=== PATIENT | female | born 1985 | race Caucasian/White ===

== ENCOUNTER 2018-04-29 15:31 | Emergency (ER) | payer SELFPAY ==
--- NOTE | 2018-04-29 17:22 | ER Document Report ---
ED Medical Screen (RME) - General Chief Complaint: Abscess Stated Complaint: POSSIBLE ABSCESS Time Seen by Provider: 04/29/18 17:14 Primary Care Provider: ILA LUCIANO MD [Primary Care Provider] - Follow up as needed Mode of Arrival: Ambulatory Information source: Patient Notes: 32-year-old female presents emergency department with complaints of a left arm abscess that started 3 days ago and has been increasing in size. Patient states that she does have a history of previous abscesses. No history of MRSA. Patient states her last abscess was 9 months ago. She denies any fever or chills. Her tetanus is up-to-date. I have greeted and performed a rapid initial assessment of this patient. A comprehensive ED assessment and evaluation of the patient, analysis of test results and completion of the medical decision making process will be conducted by additional ED providers. PHYSICAL EXAMINATION: GENERAL: Well-appearing, well-nourished and in no acute distress. HEAD: Atraumatic, normocephalic. EYES: Pupils equal round extraocular movements intact, conjunctiva are normal. ENT: Nares patent NECK: Normal range of motion LUNGS: No respiratory distress Musculoskeletal: Normal range of motion NEUROLOGICAL: Normal speech, normal gait. SKIN: Warm, Dry, normal turgor, no rashes or lesions noted, Ping pong ball size area of erythema, warmth, induration/fluctuance to the Left arm. . TRAVEL OUTSIDE OF THE [place] IN LAST 30 DAYS: No - Related Data Allergies/Adverse Reactions: Sulfa (Sulfonamide Antibiotics) Allergy (Verified 04/29/18 15:34) Past Medical History - Social History Chew tobacco use (# tins/day): No Frequency of alcohol use: None Drug Abuse: None Renal/ Medical History: Denies: Hx Peritoneal Dialysis Past Surgical History: Reports: Hx Section - 1 Physical Exam - Vital signs Vitals: Temp Pulse Resp BP Pulse Ox 99.4 F 85 13 106/70 95 04/29/18 15:42 04/29/18 15:42 04/29/18 15:42 04/29/18 15:42 04/29/18 15:42 Course - Vital Signs Vital signs: Temp Pulse Resp BP Pulse Ox 99.4 F 85 13 106/70 95 04/29/18 15:42 04/29/18 15:42 04/29/18 15:42 04/29/18 15:42 04/29/18 15:42 Doctor's Discharge - Discharge Referrals: ILA LUCIANO MD [Primary Care Provider] - Follow up as needed
[2018-04-29] MEDS ORDERED: HYDROCODONE/ACETAMINOPHEN 5-325 MG TABLET PO ONE (17:23)
[2018-04-29] MEDS ORDERED: LIDOCAINE 1% INJ-PF (10 MG/ML) 30 ML SDV INJ ONE (17:28)
--- NOTE | 2018-04-29 18:05 | ER Document Report ---
ED General - General Chief Complaint: Abscess Stated Complaint: POSSIBLE ABSCESS Time Seen by Provider: 04/29/18 17:14 Primary Care Provider: ILA LUCIANO MD [Primary Care Provider] - Follow up as needed Mode of Arrival: Ambulatory Information source: Patient TRAVEL OUTSIDE OF THE [place] IN LAST 30 DAYS: No - HPI Patient complains to provider of: Left upper arm abscess Onset: Other - 3 days Onset/Duration: Gradual Quality of pain: Sharp Severity: Moderate Context: Previous abscess history Associated symptoms: denies: Chills, Fever Exacerbated by: Denies Relieved by: Denies Similar symptoms previously: Yes Recently seen / treated by doctor: No Notes: 32-year-old female presents with a large abscess in the left upper arm. She has a history of abscesses in the past. Does not have any diabetes or immune compromise. Denies fevers or chills. Denies skin popping and IV drug abuse. Patient now also asking for something to help with her left upper jaw dental pain. - Related Data Allergies/Adverse Reactions: Sulfa (Sulfonamide Antibiotics) Allergy (Verified 04/29/18 15:34) Past Medical History - General Information source: Patient - Social History Smoking Status: Never Smoker Chew tobacco use (# tins/day): No Frequency of alcohol use: None Drug Abuse: None Family History: Reviewed & Not Pertinent Patient has suicidal ideation: No Patient has homicidal ideation: No Renal/ Medical History: Denies: Hx Peritoneal Dialysis Past Surgical History: Reports: Hx Section - 1 Review of Systems - Review of Systems Notes: Constitutional: No fevers. No chills. EENT: No eye redness. No eye pain. No ear pain. No sore throat. Cardiovascular: No chest pain. No palpitations. Respiratory: No cough. No shortness of breath. No respiratory distress. Gastrointestinal: No abdominal pain. No nausea, vomiting, or diarrhea. Genitourinary: Atraumatic. No lesions. No pain. No discharge. Musculoskeletal: Atraumatic. No swelling. No deformities. Skin: Left upper extremity abscess Lymphatic: No swollen lymph nodes. Neurologic: No headache. No syncope. Psychiatric: No suicidal or homicidal ideation. Physical Exam - Vital signs Vitals: Temp Pulse Resp BP Pulse Ox 99.4 F 85 13 106/70 95 04/29/18 15:42 04/29/18 15:42 04/29/18 15:42 04/29/18 15:42 04/29/18 15:42 - Notes Notes: General: Well-developed, well-nourished. In no acute distress. Non-toxic appearing. Cardiac: Well-perfused. Regular rate and rhythm. No murmurs, rubs, or gallops. Pulmonary: No respiratory distress. No cyanosis. Bilateral lung fiels are clear to auscultation. Abdominal: Non-distended. Non-rigid. Bowels sounds are present in all four quadrants. No guarding or rebound. HEENT: Head is atraumatic. Conjunctivae not reddened. No tearing. PERRL. EOMI. Orbits atraumatic. No periorbital swelling or erythema. Oropharynx is without erythema, swelling, or exudates. General dentition in very poor repair. Left upper jaw with multiple consecutive broken decayed teeth tender. No visible abscess Neck: Supple. No adenopathy. No meningismus. Dermatologic: Large 3 cm diameter fluctuant abscess with cellulitis to the left upper arm. Chest: Atraumatic. No chest wall tenderness to palpation. Musculoskeletal: Moves all extremities well. No range of motion deficits. no muscular or joint tenderness. No paraspinal muscle tenderness. no midline spinal tenderness or step-off. Genitourinary: Examination deferred Neurologic: No gross neurologic deficits. Psychiatric: Normal mood. Course - Re-evaluation Re-evalutation: 04/29/18 18:04 Patient requests oral pain medication before we do the procedure. - Vital Signs Vital signs: Temp Pulse Resp BP Pulse Ox 99.4 F 85 13 106/70 95 04/29/18 15:42 04/29/18 15:42 04/29/18 15:42 04/29/18 15:42 04/29/18 15:42 Procedures - Incision and Drainage Left Upper Arm Type: Simple Anesthetic type: 1% Lidocaine mL's of anesthetic: 10 Blade size: 11 I&D procedure: Betadine prep applied, Shurclens applied, Iodoform packing placed Incision Method: Incision made with needle Amount/type of drainage: 10 cc Notes: 04/29/18 18:49 Patient tolerated procedure well Discharge - Discharge Clinical Impression: Dental abscess, Abscess of left arm Condition: Good Disposition: HOME, SELF-CARE Instructions: Abscess ([facility]), Dental Infection or Abscess ([facility]) Prescriptions: Tramadol HCl [Ultram] 50 mg PO Q6HP PRN #10 tablet PRN Reason: Clindamycin HCl [Cleocin 300 mg Capsule] 300 mg PO TID #30 capsule Forms: Smoking Cessation Education Referrals: ILA LUCIANO MD [Primary Care Provider] - Follow up as needed [facility] [Provider Group] - Follow up tomorrow
[2018-04-29] MEDS ORDERED: LIDOCAINE 2% VISCOUS SOLN 20 ML UDCUP PO ONE (18:49)
[2018-04-29] MEDS ORDERED: IBUPROFEN 800 MG TABLET PO ONE (18:50)
[2018-04-29 19:20] VITALS: BP 105/60
== END 2018-04-29 19:24 | disposition home or self-care (01) ==
LOC: ER 15:31
PROC: 0H9CXZZ Drainage of Left Upper Arm Skin, External Approach (ICD-10-PCS; principal; 2018-04-29)
DX: L02.412 Cutaneous abscess of left axilla (principal); K04.7 Periapical abscess without sinus
CPT/HCPCS: 99283; 10060; A6266; J3490 ×2